=== PATIENT | female | born 1965 ===

== ENCOUNTER 2024-08-18 08:12 | Outpatient (CLI) | payer OTHER | END 2024-08-18 08:15 | disposition home or self-care (01) | LOC: SONOGRAMA 08:12 | PROVIDERS: ATTEND Pathology Anatomic Pathology | DX: D34 Benign neoplasm of thyroid gland (principal); E06.3 Autoimmune thyroiditis; E07.89 Other specified disorders of thyroid; E04.2 Nontoxic multinodular goiter ==